=== PATIENT | male | born 1950 | race Caucasian/White ===

== ENCOUNTER → 2018-08-08 | Outpatient (CLI) | payer MEDICARE ==
--- NOTE | 2018-08-08 16:30 | REP ---
CT study of the chest without contrast: History: Nicotine dependence. Low-dose screening chest CT. No comparison study. Findings: Preliminary digital color stripper radiograph demonstrates a loop recorder and mild dextroconvex thoracic curvature. There are scattered granulomatous nodular calcifications in the right lung multiple locations. There are scattered small subcentimeter noncalcified pulmonary nodules as well. Most of the noncalcified nodules are quite tiny, the largest is 5 mm. No pleural effusion is seen. Study is otherwise unremarkable. There are granulomatous lymph node calcifications in each hilus. There is a cage like device in the left atrial appendage consistent with appended closure device. Impression: Lung RADS category II benign findings. Repeat screening study recommended 1 year. Multiple calcified and tiny noncalcified nodules. Electronically Signed by Adam Kunz MD 08/08/2018 07:35 P
== END ==
LOC: M RAD 13:13
PROVIDERS: ATTEND Internal Medicine Pulmonary Disease
DX: R91.8 Other nonspecific abnormal finding of lung field (principal); Z87.891 Personal history of nicotine dependence

== ENCOUNTER → 2019-08-30 | Outpatient (CLI) | payer MEDICARE ==
--- NOTE | 2019-08-30 12:56 | REP ---
REASON: Tobacco abuse, followup. COMPARISON: 08/08/2018, the only prior. As per the protocol, only lung window images were sent to the read station for interpretation. Scattered noncalcified pulmonary nodules again seen throughout the lung maguire bilaterally. Some calcified pulmonary nodules are also seen bilaterally. All nodules are stable. No new abnormal nodules, masses, or opacities have developed. IMPRESSION: Stable CT examination of the chest. Lung-RADS category 2. Electronically Signed by Dereck Ahumada DO 08/30/2019 01:29 P
== END ==
LOC: M RAD 10:24
PROVIDERS: ATTEND Internal Medicine Pulmonary Disease
DX: Z12.2 Encounter for screening for malignant neoplasm of respiratory organs (principal); Z87.891 Personal history of nicotine dependence

== ENCOUNTER → 2020-09-17 | Outpatient (CLI) | payer MEDICARE ==
--- NOTE | 2020-09-17 13:08 | REP ---
INDICATION: ABN FINDING OF LUNG FIELD COMPARISON: Multiple latest 08/30/2019 a low-dose screening CT examination of the lungs TECHNIQUE: Standard helical technique without the administration of intravenous contrast. FINDINGS: There is no mediastinal or hilar adenopathy. There is an implanted recording device in the left anterior chest wall subcutanea. There is no pleural or pericardial effusion. The imaged upper abdomen shows multiple calcifications in the liver and spleen likely secondary to old calcified granulomatous changes. There is a low-density lesion seen in the interpolar region of the right kidney and 2 low-density regions seen in the left kidney the larger of the 2 of which is partially imaged on this chest CT. The imaged osseous structures are within normal limits for the patient's age. Evaluation of the lung maguire shows multiple calcified and noncalcified pulmonary nodules all of which appear stable. No definite new abnormal nodule, mass, or opacity has developed. IMPRESSION: 1. The lung maguire appear stable although technically different compared to the prior exams. Lung rads category 2. 2. Suspected renal cysts as described above with no priors for comparison and some partially imaged. Pre and postcontrast enhanced renal CT is recommended for complete evaluation. 3. Chronic liver and spleen changes as described above. 4. Other findings as described above. <Electronically signed by Dereck Ahumada > 09/17/20 [id number]
== END ==
LOC: M RAD 12:22
PROVIDERS: ATTEND Internal Medicine Pulmonary Disease
DX: R91.8 Other nonspecific abnormal finding of lung field (principal)

== ENCOUNTER → 2021-02-17 | Outpatient (CLI) | payer MEDICARE ==
[~2021-02-17] MED LIST: ISOVUE-370 76% 100ML VIAL ONE
--- NOTE | 2021-02-17 12:49 | REP ---
INDICATION: CONGENITAL RENAL CYST UNSPECIFIED. COMPARISON: None. TECHNIQUE: Standard helical technique after the intravenous administration of 100 cc Isovue 370 FINDINGS: The lung bases are unchanged from the CT of the chest of 09/17/2020. Calcifications are seen scattered throughout the liver and spleen consistent with chronic calcific granulomatous changes. There are no enhancing hepatic masses. The gallbladder, pancreas, and adrenal glands are unremarkable. In the right kidney there are 3 round nonenhancing low-density foci each having water density Hounsfield unit readings and all consistent with simple cysts. There are 5 like structures in the left kidney the largest of which measures 4.8 cm. There are no enhancing renal masses. The abdominal aorta and para-aortic regions are within normal limits. The bowel loops and the mesenteries are within normal limits. There is no evidence of a mass or adenopathy. There is an incidental duodenal diverticulum. There is no free fluid or free air. Bone window technique throughout the exam shows no evidence of an acute osseous abnormality. There are spinal degenerative changes and chronic changes seen involving the left iliac crest. IMPRESSION: Bilateral renal cysts. Other findings as described above. There is no evidence of acute disease. <Electronically signed by Dereck Ahumada > 02/17/21 [id number]
== END ==
LOC: M PLAIMG 10:48
PROVIDERS: ATTEND Internal Medicine Pulmonary Disease
DX: Q61.00 Congenital renal cyst, unspecified (principal)
CPT/HCPCS: 74177; Q9967